=== PATIENT | male | born 1960 | race Caucasian/White ===

== ENCOUNTER → 2021-05-23 | Day surgery (SDC) | payer OTHER ==
[~2021-05-23] MED LIST: AVAPRO 150 MG150 M1 PO; CENTRUM SILVER1 EAC7 PO; DULOXETINE HCL60 MG PO; FENOFIBRATE145 M1 PO; FLOMAX0.4 MG PO; FUROSEMIDE 20 M20 MG PO; GABAPENTIN600 M1 PO; HYDROCHLOROTH12.5 M1 PO; METFORMIN HCL500 M3 PO; PERCOCET 5-3251 EACH PO; PROPRANOLOL 20M20 MG PO; ROPINIROLE HCL2 MG PO; ROXICODONE5 MG PO; SEROQUEL 100 M100 M1 PO; SPIRONOLACTONE25 MG PO
--- NOTE | ~2021-05-23 | PROC ---
[address] [address] PROCEDURE REPORT Name: GUS CONTRERAS Room: [facility].#: [id number] Admission: 05/23/21 Attend Phys: Gregg Finley MD Discharge: Date of : 62 Report #: [id number] THIS REPORT FOR: cc: Anni Orourke MD, Gretchen MD [facility],Medical Records Staff ~ For GI report, please see the Provation report in Perpective 7 content. By: [id number] Records Staff ELIN /MADIE
[2021-05-23 14:16] LABS: HEMATOCRIT 36.5 % (42.0-52.0); HEMOGLOBIN 12.8 gm/dL (14.0-18.0); MCH 34.2 pg (26.0-34.0); MCHC 35.1 g/dL (28.0-37.0); MCV 97.5 fL (80.0-100.0); MPV 7.9 fl. (7.2-11.1); RBC 3.74 mil/uL (4.50-6.00); RDW-CV 13.8 % (10.5-14.5); WBC 4.9 thou/uL (4.0-11.0)
[2021-05-23 14:31] LABS: CALCIUM 8.8 mg/dL (8.5-10.1); CREATININE 0.9 mg/dL (0.6-1.3)
--- NOTE | 2021-05-24 14:33 | EKG ---
[place] [address] ELECTROCARDIOGRAM REPORT Name: GUS CONTRERAS Room: [facility]#: [id number] Admission: 05/23/21 Attend Phys: Gregg Finley MD Discharge: Date of : 62 Date of Service: 05/23/21 1419 Report #: [id number] THIS REPORT FOR: //name// [facility] Test Date: 2021-05-23 Test Time: 14:19:44 Pat Name: GUS CONTRERAS Department: Room: Gender: [employer]ke Lining: KATIE JAQUEZ : 1960 Requested By: Gregg Finley Order Number: [id number] Isidra MD: Iftikhar Hill Measurements Intervals [place] Rate: 57 P: 19 MO: 152 QRS: -3 QRSD: 115 T: 42 QT: 460 QTc: 448 Interpretive Statements Sinus rhythm Nonspecific intraventricular conduction delay No previous ECG available for comparison Electronically Signed On 05-24-2021 14:32:46 CDT by Iftikhar Hill [email or web address] <ELECTRONICALLY SIGNED> By: Iftikhar Hill MD, [facility] 05/24/21 1432 1419 141 Iftikhar Hill MD, [facility] /EPI
--- NOTE | 2021-05-28 11:07 | PATH ---
[facility] [address] [place] [address] PATHOLOGY RPT PROCEDURE Name: GUS CONTRERAS Room: [facility] Juan Luis#: [id number] Admission: 05/23/21 Date of : 62 Discharge: Report #: [id number] Path Case #: [id number] [facility] Accession Number: [id number] . 01 Material submitted: . stomach - ANTRAL ULCER . 01 Clinical history: . 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 02 Diagnosis: Antral ulcer: - Mild nonspecific chronic antral gastritis, negative for Helicobacter pylori organisms, granulomas and dysplasia. See comment. ([place]:pit; 05/27/2021) . Special stain: H. pylori immuno QTP 05/27/2021 1456 Local . 02 Comment: There is, at most, focal and minimal/slight vascular ectasia seen. . 02 Electronically signed: . Tab Romero MD, Pathologist NPI- [id number] . 01 Gross description: . The specimen is received in formalin, labeled "Clyde Contreras, antral ulcer". Received are two segments of pale casey tissue measuring 0.4 and 0.5 cm in maximum dimensions. The specimen is submitted entirely in cassette A1. (CAA; 05/24/2021) QA/QA 05/24/2021 1928 Local . 02 Pathologist provided ICD-10: K29.50 . 02 CPT . 410544, G22161 Specimen Comment: A courtesy copy of this report has been sent to [phone], [phone] Specimen Comment: [id number] Specimen Comment: Report sent to / DR VILLAREAL Specimen Comment: A duplicate report has been generated due to demographic updates. Performed at: [address] [id number] [address] [address] PATHOLOGY RPT PROCEDURE Name: GUS CONTRERAS CATHY Room: [facility]#: [id number] Admission: 05/23/21 Date of : 62 Discharge: Report #: [id number] Path Case #: [id number] MD Manan Conroy MD Phone: [phone] Performed at: [facility] [address] [place], [place] [id number] MD Tab Romero MD Phone: [phone]
== END | disposition home or self-care (01) ==
LOC: M.SUR 06:28
PROVIDERS: ATTEND Internal Medicine Gastroenterology
DX: I85.00 Esophageal varices without bleeding (principal); K29.50 Unspecified chronic gastritis without bleeding; K31.89 Other diseases of stomach and duodenum; K25.9 Gastric ulcer, unspecified as acute or chronic, without hemorrhage or perforation; K76.6 Portal hypertension; K44.9 Diaphragmatic hernia without obstruction or gangrene; I10 Essential (primary) hypertension; E11.9 Type 2 diabetes mellitus without complications; J44.9 Chronic obstructive pulmonary disease, unspecified; F41.9 Anxiety disorder, unspecified; F17.210 Nicotine dependence, cigarettes, uncomplicated; Z98.890 Other specified postprocedural states; Z79.899 Other long term (current) drug therapy; Z90.49 Acquired absence of other specified parts of digestive tract; Z20.822 Contact with and (suspected) exposure to COVID-19; Z88.8 Allergy status to other drugs, medicaments and biological substances

== ENCOUNTER → 2021-07-24 | Day surgery (SDC) | payer OTHER ==
--- NOTE | ~2021-07-24 | PROC ---
[address] [address] PROCEDURE REPORT Name: ALOK CONTRERAS Room: [facility]#: [id number] Admission: 07/24/21 Attend Phys: Alok Malik DO Discharge: Date of : 62 Report #: [id number] THIS REPORT FOR: cc: Anni Orourke MD, Gretchen MD [facility],Medical Records Staff ~ For Gi report, please see the Provation report in Perceptive 7 content. By: [id number] Records Staff ELIN /MADIE
[2021-07-24 08:36] LABS: ABSOLUTE EOSINOPHILS 0.1 thou/uL (0.0-0.7); ABSOLUTE LYMPHOCYTES 1.4 thou/uL (0.8-5.3); ABSOLUTE MONOCYTES 0.4 thou/uL (0.0-1.2); ABSOLUTE NEUTROPHILS 2.2 thou/uL (1.6-8.1); BASOPHILS 0.7 %; EOSINOPHILS 3.4 %; HEMATOCRIT 39.3 % (42.0-52.0); HEMOGLOBIN 13.6 gm/dL (14.0-18.0); LYMPHOCYTES 33.6 %; MCH 33.8 pg (26.0-34.0); MCHC 34.6 g/dL (28.0-37.0); MCV 97.5 fL (80.0-100.0); MONOCYTES 10.1 %; MPV 9.1 fl. (7.2-11.1); NUCLEATED RBCS 0 /100WBC; PLATELET COUNT* 118 thou/uL (150-400); POLYS 52.2 %; RBC 4.03 mil/uL (4.50-6.00); RDW-CV 13.4 % (10.5-14.5); WBC 4.3 thou/uL (4.0-11.0)
[2021-07-24 08:42] LABS: INR 1.2
[2021-07-24 09:05] LABS: CALCIUM 9.1 mg/dL (8.5-10.1); POTASSIUM 3.6 mmol/L (3.5-5.1)
[2021-07-24 09:09] LABS: ALBUMIN 3.5 g/dL (3.4-5.0); TOTAL BILIRUBIN 0.7 mg/dL (<0.1-1.0)
== END | disposition home or self-care (01) ==
LOC: M.ULTRA 06:50 → M.SUR 06:50
PROVIDERS: ATTEND Internal Medicine Gastroenterology
DX: I85.00 Esophageal varices without bleeding (principal); K25.3 Acute gastric ulcer without hemorrhage or perforation; K76.6 Portal hypertension; K31.89 Other diseases of stomach and duodenum; I10 Essential (primary) hypertension; E11.9 Type 2 diabetes mellitus without complications; J44.9 Chronic obstructive pulmonary disease, unspecified; F41.9 Anxiety disorder, unspecified; Z79.899 Other long term (current) drug therapy; Z98.890 Other specified postprocedural states; Z20.822 Contact with and (suspected) exposure to COVID-19; Z90.49 Acquired absence of other specified parts of digestive tract; Z88.8 Allergy status to other drugs, medicaments and biological substances